=== PATIENT | female | born 1955 | race Caucasian/White ===

== ENCOUNTER 2017-07-08 19:49 | Inpatient (IN) | payer OTHER, MEDICAID ==
[~2017-07-08] VITALS: Ht 154.9 cm; Wt 57.2 kg
[~2017-07-08 19:49] MED LIST: ADVAIR 250-501 EACH INH; ADVAIR HFA 230M12 GM; ADVAIR HFA 230M12 GM INH; APAP500 PO; AZELASTINE137 MCG/0. NASAL; BENADRYL25 MG PO; CEFUROXIME250 MG PO; DIFLUCAN200 MG PO; DUONEB 2.5-0.5 M3 ML; FLONASE 0.05%50 MCG NASAL; HYDROCODONE-AP1 EAC6 PO; HYDROCODONE-APA1 TA1 PO; IBUPROFEN 200200 M1 PO; KEFLEX500 M1 PO; KLOR-CON 1010 MEQ PO; LASIX 40 MG TAB40 M2 PO; LEVALBUTER1.25 MG/0. INH; LEVAQUIN 250 M250 MG PO; LEVAQUIN 500 M500 M2 PO; LEVAQUIN 500 M500 MG PO; LORTAB 10-3251 EACH PO; MUCINEX TA600 MG/TA2 PO; NEXIUM40 MG PO; NORCO 5-325 TA1 EACH PO; NYSTATIN 1100000 U/M PO; ONDANSETRON HCL4 M2 PO; OXYGEN; PEPCID20 MG PO; PERCOCET 5-3251 EACH PO; PERCOCET PO; PREDNISONE 10 M10 MG PO; PREDNISONE10 MG PO; SINGULAIR 10 MG10 M1 PO; SPIRIVA INH; VENTOLIN HFA 1818 GM INH; VITAMIN D2000 UNIT PO; XANAX 0.5 MG0.5 MG PO
[2017-07-08 19:54] VITALS: BP 148/83
[2017-07-08] MEDS ORDERED: PREDNISONE 10 M10 MG (20:03)
[2017-07-08 20:33] LABS: ABSOLUTE LYMPHOCYTES 1.5 thou/uL (0.8-5.3); ABSOLUTE MONOCYTES 0.2 thou/uL (0.0-1.2); ABSOLUTE NEUTROPHILS 6.1 thou/uL (1.6-8.1); BASOPHILS 0.4 %; EOSINOPHILS 0.1 %; HEMATOCRIT 39.4 % (37.0-47.0); HEMOGLOBIN 12.8 gm/dL (12.0-15.0); MCH 30.9 pg (26.0-34.0); MCHC 32.6 g/dL (28.0-37.0); MCV 94.8 fL (80.0-100.0); MONOCYTES 2.9 %; MPV 7.9 fl. (7.2-11.1); NUCLEATED RBCS 0 /100WBC; PLATELET COUNT* 306 thou/uL (150-400); POLYS 77.6 %; RBC 4.15 mil/uL (4.20-5.00); RDW-CV 13.2 % (10.5-14.5); WBC 7.9 thou/uL (4.0-11.0)
[2017-07-08 20:41] LABS: ANION GAP 6 mmol/L (7-16); BUN 13 mg/dL (7-18); CALCIUM 8.4 mg/dL (8.5-10.1); CHLORIDE 102 mmol/L (98-107); CO2 31 mmol/L (21-32); CREATININE 0.6 mg/dL (0.6-1.3); GLUCOSE 134 mg/dL (70-99); POTASSIUM 3.6 mmol/L (3.5-5.1); SODIUM 139 mmol/L (136-145)
[2017-07-08 20:52] LABS: ALBUMIN 3.3 g/dL (3.4-5.0); ALKALINE PHOSPHATASE 77 U/L (46-116); LIPASE 186 U/L (73-393); NT-PRO BRAIN NAT PEPTIDE 84 pg/mL (<300); SGOT 22 U/L (15-37); SGPT 26 U/L (30-65); TOTAL BILIRUBIN 0.1 mg/dL (<0.1-1.0); TOTAL PROTEIN 7.2 g/dL (6.4-8.2); TROPONIN-I LEVEL <0.06 ng/mL (<0.06)
[2017-07-08 22:56] LABS: INFLUENZA A ANTIGEN None Detected (None Detect); INFLUENZA B ANTIGEN None Detected (None Detect)
[2017-07-08 23:05] VITALS: BP 124/75
[2017-07-09] MEDS ORDERED: MUCINEX1200 MG PO (00:25)
[2017-07-09 00:51] VITALS: BP 119/70
[2017-07-09 02:22] LABS: URINE BILIRUBIN NEGATIVE (Negative); URINE BLOOD NEGATIVE (Negative); URINE CLARITY CLEAR; URINE COLOR YELLOW; URINE GLUCOSE-RANDOM NEGATIVE (Negative); URINE KETONES NEGATIVE (Negative); URINE LEUKOCYTES NEGATIVE (Negative); URINE NITRITE NEGATIVE (Negative); URINE PROTEIN NEGATIVE (Negative); URINE UROBILINOGEN 0.2 E.U./dl (0.2-1.0)
[2017-07-09 04:22] VITALS: BP 119/70
--- NOTE | 2017-07-09 06:15 | NUR ---
PT ARRIVED ON UNIT AT 2314. PT ORIENTED TO ROOM, SHOWN CALL LIGHT. WENT OVER FALL AGREEMENT, PT STATED UNDERSTANDING. ASSESSMENT DOCUMENTED. MEDS GIVEN PER E-MAR. PT REQUESTED TO NOT HAVE FLUIDS RUNNING SHE SWELLS EASY, PT ALSO REQUESTED CHANGE IN BREATING TREATMENT, ANXIETY MEDICATIONS AND SOMETHING FOR PAIN IN HER RIBS/BACK. NOTIFIED, ORDERS RECIEVED. PT AWAKE MOST OF SHIFT. WILL CONTINUE TO MONITOR.
[2017-07-09 08:15] VITALS: BP 128/76
--- NOTE | 2017-07-09 15:35 | EKG ---
[place] [address] ELECTROCARDIOGRAM REPORT Name: JANETH KIRBY I Room: [address] ADM IN M.R.#: [id number] Admission: 07/08/17 Attend Phys: Gayle Romo MD Discharge: Date of : 57 Report #: [id number] THIS REPORT FOR: //name// [facility] ED Test Date: 2017-07-08 Test Time: 20:47:22 Pat Name: JANETH KIRBY Department: Room: [facility] Gender: F Business Office Assistant: BRIANNA : 1955 Requested By: Janet Pablo Order Number: [id number] MD: Adrien Man Measurements Intervals Allen Rate: 100 P: 69 FL: 134 QRS: -12 QRSD: 101 T: 33 QT: 346 QTc: 447 Interpretive Statements Sinus tachycardia Atrial premature complexes Compared to ECG 05/14/2017 20:57:48 Inferior Q waves no longer present Electronically Signed On 07-09-2017 15:34:52 TRIM OPERATOR by Adrien Man [email or web address] <ELECTRONICALLY SIGNED> By: Adrien Man MD, [facility] 07/09/17 1534 46 Adrien Man MD, [facility] /EPI
[2017-07-09 15:45] VITALS: BP 122/79
--- NOTE | 2017-07-09 16:02 | 2DMMODE ---
[place] [address] 2 D/M-MODE ECHOCARDIOGRAM Name: MIRTAJANETH I Room: [address] IN [facility]#: [id number] Admission: 07/08/17 Attend Phys: Gayle Romo, Discharge: Date of : 57 Date of Service: 07/09/17 1602 Report #: [id number] THIS REPORT FOR: //name// APPROVED REPORT Study performed: 07/09/2017 14:42:47 EXAM: Comprehensive 2D, Doppler, and color-flow Echocardiogram Patient Location: In-Patient Room #: [facility] Status: routine BSA: 1.55 HR: 91 bpm BP: 128/76 mmHg Rhythm: NSR Other Information Study Quality: Good Indications COPD Dyspnea 2D Dimensions LVEF(%): 59.03 (>50%) IVSd: 9.06 (7-11mm) LVOT Diam: 19.19 (18-24mm) LVDd: 33.71 mm PWd: 9.09 (7-11mm) Ascending Ao: 28.10 (22-36mm) LVDs: 23.45 (25-40mm) Aortic Root: 31.62 mm Vega's LVEF: 59.03 % Volumes Left Atrial Volume (Systole) LA ESV Index: 20.60 mL/m2 Aortic Valve AoV Peak Wai.: 1.33 m/s AO Peak Gr.: 7.03 mmHg LVOT Max P.50 mmHg AO Mean Gr.: 4.35 mmHg LVOT Mean P.06 mmHg LVOT Max V: 1.37 m/s AO V2 VTI: 27.74 cm LVOT Mean V: 0.78 m/s NYASIA (VTI): 2.70 cm2 LVOT V1 VTI: 25.87 [place] [address] 2 D/M-MODE ECHOCARDIOGRAM Name: JANETH KIRBY I Room: [address] IN .R.#: [id number] Admission: 07/08/17 Attend Phys: Gayle Romo, Discharge: Date of : 57 Date of Service: 07/09/17 1602 Report #: [id number] E/A Ratio: 0.85 MV Decel. Time: 244.49 ms MV E Max Wai.: 0.66 m/s MV PHT: 70.90 ms MVA (PHT): 3.10 cm2 TDI E/Lateral E': 5.08 E/Medial E': 6.00 Medial E' Wai.: 0.11 m/s Lateral E' Wai.: 0.13 m/s Pulmonary Valve PV Peak Wai.: 1.05 m/s PV Peak Gr.: 4.42 mmHg Tricuspid Valve TR Peak Gr.: 21.12 mmHg RVSP: 26.00 mmHg Left Ventricle The left ventricle is normal size. There is normal LV segmental wall motion. There is normal left ventricular wall thickness. Left ventricular systolic function is normal. The left ventricular ejection fraction is within the normal range. LVEF is 60%. Grade I - abnormal relaxation pattern. Right Ventricle The right ventricle is normal size. The right ventricular systolic function is normal. Atria The left atrium size is normal. The right atrium size is normal. Aortic Valve Mild aortic valve sclerosis. No aortic regurgitation is present. There is no aortic valvular stenosis. Mitral Valve The mitral valve is normal in structure. Trace mitral regurgitation. No evidence of mitral valve stenosis. Tricuspid Valve The tricuspid valve is normal in structure. Trace tricuspid regurgitation. The RVSP is ____26___ mmHg. Pulmonic Valve The pulmonary valve is normal in structure[place] [address] 2 D/M-MODE ECHOCARDIOGRAM Name: JANETH KIRBY I Room: [address] IN [facility]#: [id number] Admission: 07/08/17 Attend Phys: Gayle Romo, Discharge: Date of : 57 Date of Service: 07/09/17 1602 Report #: [id number] regurgitation. Great Vessels The aortic root is normal in size. IVC is normal in size and collapses with >50% inspiration Pericardium There is no pericardial effusion. <Conclusion> The left ventricle is normal size. There is normal left ventricular wall thickness. Left ventricular systolic function is normal. The left ventricular ejection fraction is within the normal range. LVEF is 60%. Grade I - abnormal relaxation pattern. The right ventricle is normal size. The left atrium size is normal. Mild aortic valve sclerosis. No aortic regurgitation is present. There is no aortic valvular stenosis. The mitral valve is normal in structure. Trace mitral regurgitation. The tricuspid valve is normal in structure. Trace tricuspid regurgitation. The RVSP is ____26___ mmHg. IVC is normal in size and collapses with >50% inspiration There is no pericardial effusion. There is normal LV segmental wall motion. <ELECTRONICALLY SIGNED> By: Adrien Man MD, FACC 07/09/17 1602 1602 160 Adrien Man MD, FACC /INF
--- NOTE | 2017-07-09 16:08 | NUR ---
PT.IN BED WITH O2 ON. WAS A BIT SOA WITH SPEAKING. SHE SAID SHE LIVES WITH HER DAUGHTER,ELANA, AND 2 SCHOOL AGE GRANDCHILDREN. SHE LIVES DOWNSTAIRS THAT HAS A BEDROOM,LIVING ROOM,AND BATHROOM. SHE HAS ACCESS TO A REFRIDGERATOR AND MICROWAVE IF SHE DOESN'T WANT TO GO UPSTAIRS TO THE KITCHEN FOR MEALS. SHE SAID SOMEDAYS THE STAIRS ARE JUST TOO MUCH FOR HER. SHE HAS O2 THROUGH [facility]. SHE SAID I HAVE EVERYTHING I NEED. SHE IS INDEPENDENT. DRIVES,SPOT CLEANS,DOES LAUNDRY,DRIVES. SEH SAID IM NOT INDEPENDENT I USED TO BE. SHE WANTS TO MAKE OUT A NEW ADVANCE DIRECTIVE. SHE WOULD LIKE SOMEONE TO SIT DOWN AND GO OVER IT WITH HER. NONE ON 3W. CM TOLD HER I WOULD BRING HER ONE TOMORROW.
--- NOTE | 2017-07-09 16:44 | NUR ---
PATIENT UP TO BATHROOM AD MAHIN, STRADY GAIT NOTED. URINE SENT ORDERED FOR SAMPLE AND PENDING, SPUTUM CUP GIVEN AND AWAITING SAMPLE. HOME MEDS REORDERED AND GIVEN. PATIENTS DAUGHTER BROUGHT IN HOME SPIRIVA, ADVAIR, AND NASAL SPRAY; ALL SENT TO PHARMACY FOR CHECKING. IV REMAINS SL, SCHED STEROIDS AND ABX REMAIN. TOLERATING REG DIET. PULMONARY HERE THIS MORNING TO SEE PATIENT.
[2017-07-10] VITALS: BP 116/64
[2017-07-10 04:33] LABS: HEMATOCRIT 36.9 % (37.0-47.0); HEMOGLOBIN 12.4 gm/dL (12.0-15.0); MCH 31.2 pg (26.0-34.0); MCHC 33.5 g/dL (28.0-37.0); MCV 93.3 fL (80.0-100.0); MPV 8.3 fl. (7.2-11.1); RBC 3.95 mil/uL (4.20-5.00); WBC 3.9 thou/uL (4.0-11.0)
[2017-07-10 04:41] LABS: CALCIUM 8.8 mg/dL (8.5-10.1); CREATININE 0.7 mg/dL (0.6-1.3); POTASSIUM 4.5 mmol/L (3.5-5.1)
--- NOTE | 2017-07-10 06:47 | NUR ---
PATIENT SLEPT PART OF THE NIGHT. IV REMAINS SALINE LOCKED. PATIENT REMAINS ON OXYGEN AT 2 LITERS PER NASAL CANNULA. PATIENT STATES SHE IS FEELING A LITTLE BETTER. WILL CONTINUE TO MONITOR.
[2017-07-10 08:35] VITALS: BP 144/89
--- NOTE | 2017-07-10 13:20 | CON ---
[facility] [address] [place] [address] CONSULTATION Name: MIRTAJANETH Deion Room: [address] IN M.R.#: [id number] Admission: 07/08/17 Attend Phys: Gayle Romo MD Discharge: Date of : 57 Report #: [id number] THIS REPORT FOR: //name// CC: Car Romo REQUESTING PHYSICIAN: Marquis Correa M.D. REASON FOR CONSULTATION: Chronic cough. DISCUSSION: The patient is a 61-year-old woman with a history of severe COPD. She is O2, though has not been steroid dependent. Our group has seen her previously when she has been hospitalized here at [place]. She normally gets her pulmonary care through Dr. Meade in [facility]. She is a former smoker. Baseline, she does have severe disease. She has been O2, though not steroid dependent. Quit smoking approximately 2008. She located to this area several years ago from [place]. She was treated for Aspergillus infection approximately 2009 based on results from a bronchoscopy at that time. She was hospitalized here 2 years ago. At that time, was found to have suspicious masses in addition to changes of old granulomatous disease. She underwent bronchoscopy. At that time, no additional fungi or AFBs were identified. A followup CAT scanning did show the larger nodules had essentially resolved or shrunk inside. She has continued with evidence of old granulomatous disease with no worrisome masses on scans done back in May. She was hospitalized here in the spring of this year. She was treated for bronchitis and COPD exacerbation. Scans done at that time and cultures were all negative. She does not believe she required any antibiotics for her lungs up until the last couple of months. She has had her flu shot and is up-to-date with her pneumonia vaccines. She has had a lot of cough. At times, it varies. Intermittently is having pain. She describes it as a stabbing pain. Some of it is at the lower part of her right anterior rib cage. Other times, it is in the back. She may be coughing hard. At times, she may feel as if it is from upper airway congestion and postnasal drip. At times, just feels like she cannot get the secretions out. Intermittently, has heard some rattles in her chest when she first lies down. She does do Mucinex at home as well. At home besides her O2, she does have the nebulizer. She does albuterol with that, Spiriva daily and Advair twice a day. Also, fluticasone nasal spray, Zyrtec and Astelin. She does believe she has enough humidity. She has been coughing so hard and at times feeling weaker, subsequently did come to the ED. She notes the last couple of days, her O2 saturations were falling into the 80s. Heart rate at times were somewhat erratic as well. She does have a pulse oximeter at home. She describes having heart rates down in the 40s and then tachycardic (question if it was picking up a good signal or not). She has not had any hemoptysis. Secretions have been thick. Generally, is not able to get up much. She does [address] [address] CONSULTATION Name: JANETH KIRBY I Room: [address] IN M.R.#: [id number] Admission: 07/08/17 Attend Phys: Gayle Romo MD Discharge: Date of : 57 Report #: [id number] have an Acapella at home, which she will use. She has ongoing issues with indigestion and heartburn. She does use Nexium daily and at times will use some p.r.n. Pepcid as well. On reviewing some of her old consults, she had PFTs done several years ago. At that time, her FEV1 was only 0.62 or 27% of predicted. Her FEV1/FVC ratio was 37%. She did have a bronchoscopy done by Dr. Macias 2 years ago. At that time, I was concerned that she had some masses. 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 She had no endobronchial lesions seen. She has no prior history of thromboembolic disease. PAST MEDICAL HISTORY: Besides her pulmonary disease is remarkable for having prior episodes of pneumonia and she did have a Pseudomonas pneumonia over a year ago, the followup cultures were all negative, hernia repair, hysterectomy with oophorectomy, diverticular disease. ALLERGIES: SHE DOES HAVE MULTIPLE ALLERGIES, NOT ONLY MEDICATIONS BUT FOODS WELL. SOCIAL HISTORY: Quit smoking back in 2008. FAMILY HISTORY: Positive for heart disease, breast cancer, strokes, thromboembolic disease and COPD. REVIEW OF SYSTEMS: No positives above. Does have ongoing reflux symptoms. She does note when she has a flare up or an exacerbation, she does get chest pain in the same locations. Intermittent upper airway congestion. Not had any vomiting. No hemoptysis. Secretions have been thick, but more recently has had trouble mobilizing them. White to pale yellow. No diarrhea. She does tend to retain fluid in her lower extremities. It is worse when she takes steroids. No syncopal episodes. However, she did have palpitations, felt extremely lightheaded over the last couple of days when she was exerting herself. PHYSICAL EXAMINATION: GENERAL APPEARANCE: A woman who looks stated age. Alert, cooperative, fairly comfortable. She is having a very harsh cough. Did not expectorate any sputum at the time of my visit. HEENT: Head is normocephalic. Sclerae are nonicteric. Mucous membranes are moist. NECK: Negative for adenopathy. No JVD is noted. No supraclavicular adenopathy. HEART: Regular rate. Just mildly tachycardic. No S3 is heard. LUNGS: Show breath sounds to be markedly diminished. She has a prolonged expiratory phase. Excursion is equal. A few faint late expiratory wheezes are heard. No chest wall abnormalities are appreciated. She does have some tenderness when palpating along the lower [place] [id number] CONSULTATION Name: JANETH KIRBY I Room: [address] IN [facility].#: [id number] Admission: 07/08/17 Attend Phys: Gayle Romo MD Discharge: Date of : 57 Report #: [id number] ABDOMEN: Soft, without appreciable hepatosplenomegaly. There is no guarding or rebound tenderness noted. EXTREMITIES: She has no clubbing. Lower extremities are negative for significant edema, at most may have just some very trace pretibial edema. No obvious cords. No calf tenderness. SKIN: Warm and dry. NEUROLOGIC: She is alert and oriented x 3. LABORATORY AND X-RAY FINDINGS: Chest x-ray was reviewed. It is unchanged compared to prior studies. It has changes of almost miliary pattern of old granulomatous disease. She did have a CT scan done of her chest for followup on 05/19/2017. Continued to show extensive small calcified granulomas. She does have a left diaphragmatic hernia noted as well. There were no worrisome masses noted. No worrisome adenopathy. On her chemistry, BUN is 13, creatinine 0.6, potassium 3.6 with a bicarbonate of 31. Calcium is 8.4. LFTs unremarkable. Albumin 3.3. ProBNP was 84. Coag studies unremarkable. D-dimer was only 0.30. White blood cell count 7900, hemoglobin 12.8, hematocrit 39.4, platelets 306,000. Influenza screen was negative. IgE done in the past was negative. Blood cultures have been sent. Sputum culture has been requested. She did have noted bronchoscopy done in 2015. At that time, AFB, fungal cultures were all negative. Bacterial cultures were also negative. A year ago, she did have rare Pseudomonas isolated. However, followup sputum cultures were all negative. She has had additional AFB cultures done in the interim, again all negative. IMPRESSION: 1. Chronic obstructive pulmonary disease exacerbation. Continues with considerable amount of cough. It is related to her severe chronic obstructive pulmonary disease as I note her FEV1 2 years ago was only 0.062 or 27% of predicted. Her cough may also be exacerbated by ongoing issues with reflux. I note at that time, she underwent bronchoscopy several years ago. She did have changes of tracheomalacia. This will also make it more difficult to try and clear secretions. At this point, I do not think she has significant lower respiratory tract infections. Follow up testing done on several occasions over the last several years have not identified AFB or an ongoing fungal infection. 2. History of gastroesophageal reflux disease. 3. Mild lower extremity edema. Some of this could be related to steroids. She was taking some steroids at home over the last 4-8 weeks in attempts to trying to help her cough. I think thromboembolic disease is less likely. She had an unremarkable D-dimer done in the ED. RECOMMENDATIONS: 1. She has a lot of medication intolerances. Since she does tolerate Spiriva and Advair at home, her family will bring in those 4 and she can use those here. She does believe she has issues related to inhaled ipratropium. [address] [address] CONSULTATION Name: JANETH KIRBY I Room: [address] IN .R.#: [id number] Admission: 07/08/17 Attend Phys: Gayle Romo MD Discharge: Date of : 57 Report #: [id number] 2. Agree with IV steroids. 3. We will also provide Aerobika to try and help mobilize secretions. 4. Continue with a GERD regimen as well. 5. At this point, I think treatment with Levaquin is probably sufficient. With a normal white count, no changes on her x-ray compared to prior studies, I doubt she has a significant lower respiratory tract infection. Follow up cultures done since she had Pseudomonas have not shown any evidence of recurrence. <ELECTRONICALLY SIGNED> By: Rakel Roe MD 07/10/17 1320 1253 [id number] Mendez MD /nt
[2017-07-10 15:55] VITALS: BP 118/89
--- NOTE | 2017-07-10 16:42 | NUR ---
LONG DISCUSSION ABOUT DPOA AND ADVANCE DIRECTIVE WITH PT. SHE HAS TALKED ALOT TO HER DAUGHTER ABOUT HER WISHES. SHE FILLED OUT AD AND DPOA. NOTARIZED AND A COPY PLACED ON CHART. GAVE HER ORIGINAL AND 5 COPIES. SHE SEEMED TO HAVE ALOT OF ANXIETY WHILE DISCUSSING ADVANCE DIRECTIVE.
--- NOTE | 2017-07-10 18:43 | NUR ---
PATIENT HAS BEEN A/OX 4 THIS SHIFT. CONTINUES ON O2 AT 2L/NC, HAS NON-PRODUCTIVE TO CONGESTED COUGH AT TIMES. PATIENT UP INDEPENDENTLY WITH O2 IN ROOM. AMBULATED TO SHOWER ROOM TODAY. CONTINUES ON IV STEROIDS. SEEN BY PULM. PATIENT INCREASING ACTIVITY THIS SHIFT. HOURLY ROUNDING COMPLETED. CALL LIGHT WITHIN REACH. WILL CONTINUE WITH PLAN OF CARE.
[2017-07-10 20:00] VITALS: BP 124/76
[2017-07-10 22:17] LABS: HEMOGLOBIN 12.5 gm/dL (12.0-15.0); NUCLEATED RBCS 0 /100WBC
[2017-07-10 22:19] LABS: ABSOLUTE LYMPHOCYTES 0.9 thou/uL (0.8-5.3); ABSOLUTE MONOCYTES 0.2 thou/uL (0.0-1.2); ABSOLUTE NEUTROPHILS 5.7 thou/uL (1.6-8.1); BASOPHILS 0.6 %; HEMATOCRIT 37.3 % (37.0-47.0); LYMPHOCYTES 12.8 %; MCH 31.4 pg (26.0-34.0); MCHC 33.6 g/dL (28.0-37.0); MCV 93.4 fL (80.0-100.0); MONOCYTES 3.6 %; MPV 8.2 fl. (7.2-11.1); PLATELET COUNT* 316 thou/uL (150-400); RBC 3.99 mil/uL (4.20-5.00); WBC 6.9 thou/uL (4.0-11.0)
--- NOTE | 2017-07-11 04:44 | NUR ---
PT SLEPT MOST OF SHIFT. ASSESSMENT DOCUMENTED. MEDS GIVEN PER E-SEP. PT REPORTED PAIN IN HER RIGHT SIDE, RIBS AND BACK AREA AND REQUESTED BENGAY AND IBPROFEN. DR NOTIFED, ORDERS RECIEVED AND GIVEN PER E-SEP. IV PATENT. PT AMBULATING IN ROOM. NO CONCERNS AT THIS TIME, WILL CONTINUE TO MONITOR.
[2017-07-11 08:15] VITALS: BP 127/87
[2017-07-11 17:47] VITALS: BP 127/89
--- NOTE | 2017-07-11 18:47 | NUR ---
PATIENT UP IN CHAIR. PATIENT IS UP AD MAHIN. PATIENT IS ON 2L/NC. PATIENT HAS COMPLAINTS OF SHORTNESS OF BREATH WITH EXERTION. PATIENTHAVING COMPLAINTS OF BACK PAIN THIS EVENING, DR GARCIA NOTIFIED AND ORDERS RECEIVED. PATIENT DENIES ANY NEEDS AT THIS TIME. CALL LIGHT WITHIN REACH. WILL CONTINUE TO MONITOR.
[2017-07-12 00:27] VITALS: BP 122/68
[2017-07-12 04:17] LABS: HEMATOCRIT 40.5 % (37.0-47.0); HEMOGLOBIN 13.2 gm/dL (12.0-15.0); MCH 30.8 pg (26.0-34.0); MCHC 32.5 g/dL (28.0-37.0); MCV 94.6 fL (80.0-100.0); MPV 8.2 fl. (7.2-11.1); RBC 4.28 mil/uL (4.20-5.00); RDW-CV 13.2 % (10.5-14.5); WBC 9.5 thou/uL (4.0-11.0)
[2017-07-12 04:32] LABS: CALCIUM 9.7 mg/dL (8.5-10.1); CREATININE 0.7 mg/dL (0.6-1.3); MAGNESIUM 2.2 mg/dL (1.8-2.4); POTASSIUM 4.7 mmol/L (3.5-5.1)
--- NOTE | 2017-07-12 04:32 | NUR ---
PATIENT SLEPT PART OF THE NIGHT. IV REMAINS SALINE LOCKED. PATIENT DENIED THE NEED FOR ANY PAIN MEDICINE. PATIENT REMAINS ON OXYGEN AT 2 LITERS PER NASAL CANNULA. PATIENT IS POSSIBLY GOING HOME TODAY OR TOMORROW. WILL CONTINUE TO MONITOR.
[2017-07-12 07:45] VITALS: BP 131/102
--- NOTE | 2017-07-12 17:06 | NUR ---
PATIENT UP IN CHAIR. PATIENT ON O2 AT 2L/NC. PATIENT DENIES ANY TROUBLE BREATHING. PATIENT HAS HAD COMPLAINTS OF BACK PAIN, TREATED ADEQUATELY WITH MEDICATION. PATIENT STARTED ON TELEMETRY. PATIENT HAS GOOD APPETITE. PATIENT DENIES ANY NEEDS AT THIS TIME. CALL LIGHT WITHIN REACH. WILL CONTINUE TO MONITOR.
[2017-07-12 19:58] VITALS: BP 113/94
[2017-07-13] VITALS: BP 122/71
[2017-07-13 04:00] VITALS: BP 134/74
[2017-07-13 04:46] LABS: CREATININE 0.4 mg/dL (0.6-1.3); MAGNESIUM 2.3 mg/dL (1.8-2.4); POTASSIUM 4.9 mmol/L (3.5-5.1)
--- NOTE | 2017-07-13 05:12 | NUR ---
PT UP MOST OF THE NIGHT, PLEASANT, IV SALINE LOCKED, PRN PAIN MED LAST NIGHT, BREATHING TREATMENTS BY RT, CALL LIGHT IN REACH, WILL CONTINUE TO MONITOR
[2017-07-13 08:00] VITALS: BP 136/79
[2017-07-13 17:47] VITALS: BP 125/71
--- NOTE | 2017-07-13 19:57 | NUR ---
DAY 6 OF STAY, ASSUMED CARE THIS AM. ORIENTED, EXTREMELY ANXIOUS ABOUT PROGNOSIS, CARE PLAN, DIAGNOSTICS, RESULTS, DISEASE PROCESS, ETC. ELEVATED BP AND HR ALLEVIATED WITH BENZO AND MOTRIN. UP AD MAHIN, CONT ON 2L02NC. DAUGHTER AT BEDSIDE MOST OF THIS AFTERNOON, DAUGHTER DID STATE TO PATIENT, "YOU ARE THIS WORKED UP BECAUSE OF THE STEROIDS". DR. SOTOMAYOR AT BEDSIDE. CONT POC.
[2017-07-14 00:18] VITALS: BP 189/113
[2017-07-14 00:43] LABS: BE 5.4 mmol/L (-2 to +3); HCO3 29.2 mmol/L (22.0-26.0); PCO2 39.9 mmHg (35.0-45.0); PO2 73.4 mmHg (75.0-100.0); pH 7.482 (7.340-7.450)
--- NOTE | 2017-07-14 01:01 | NUR ---
PATIENT CONCERNED ABOUT NEW ANTIBIOTIC ORDERED SAYING THAT DR DID NOT WARN HER ABOUT IT. EXPLAINED TO PT ORDER WAS JUST PUT IN AND ANTIBX WAS NOT ON FLOOR YET THAT LEVEQUIN IV WOULD RUN FIRST AND INFORMATION SUCH SIDE EFFECTS AND ALLERGIC REACTIONS WOULD BE RESEARCHED AND INFORMATION GIVEN TO PATIENT. PT WRITING DOWN ALL MEDICATIONS, DOSES AND TIMES GIVEN. PT COMPLAINED HER IV WAS LEAKING. IV WAS SALINE LOCKED AT THE TIME. GOOD BLOOD RETURNED NOTED PRIOR TO HANGING LEVEQUIN AND WAS SET TO INFUSE. BAKER TEST FLUSHED PATIENT WHEN IV COMPLETED AND PT COMPLAINED IT WAS LEAKING. BAKER TEST REASSURED PATIENT THAT IV WAS WORKING FINE AND REPORTED THIS INFORMATION TO ME. NEW ANTIBIOTIC HUNG, PT STATED SHE DID NOT NEED INFORMATION ON THIS MEDICATION SHE HAD ALREADY RESEARCHED IT AND DECIDED IT WAS OK TO TAKE. PT AGAIN COMPLAINED HER IV WAS LEAKING. NO DAMPNESS WAS NOTED AND IV WAS STARTED AND WATCHED FOR LEAKING; NONE NOTED AND REASSURANCE GIVEN. PT THEN CALLED AND SAID IT WAS LEAKING. ANOTHER RN WENT TO ROOM AND ASSURED PT IT WAS NOT LEAKING. RN TURNED AND PT HAD RIPPED IV OUT OF ARM. IV HAD BEEN TAPED SECURELY BY MYSELF AT BEGINNING OF SHIFT. LAB THEN CALLED THE NURSES STATION AND SAID PT HAD CALLED THEIR DEPARTMENT INSISTING RESULTS OF HER SPUTUM THAT WAS SENT A FEW DAYS AGO. PT WAS TOLD BY LAB THEY WERE UNABLE TO GIVE RESULTS OF TESTS THAT SHE WOULD NEED TO CHECK HER PORTAL OR CHECK WITH MEDICAL RECORDS. PT VERY ANXIOUS AND APPEARS SUSPICIOUS OF ALL STAFF AND DOCTORS. PT SAID THAT SHE FEELS DOCTORS ARE HIDING INFORMATION FROM HER. REASSURANCE GIVEN TO PATIENT THAT ALL PERTINENT INFORMATION HAS BEEN SHARED WITH HER. WILL CONTINUE TO MONITOR.
[2017-07-14] MEDS ORDERED: PREDNISONE 10 M10 MG PO (09:09)
[2017-07-14] MEDS ORDERED: FLUCONAZOLE 10100 MG PO (09:09)
[2017-07-14] MEDS ORDERED: LEVAQUIN 750 M750 MG PO (09:09)
[2017-07-14 11:28] VITALS: BP 189/113
--- NOTE | 2017-07-14 11:35 | NUR ---
RESUMED CARE THIS AM. CONT ON 2L02NC, MEDS GIVEN ORDERED, UP TO CHAIR FOR BREAKFAST, ORDERS FOR DISCHARGE RECEIVED, PENDING CASE MANAGEMENT TO INITIATE HOME HEALTH SERVICES. CONT POC.
[2017-07-14 12:00] VITALS: BP 135/91
[2017-07-14 13:19] VITALS: BP 189/113
--- NOTE | 2017-07-14 13:21 | NUR ---
Pt to dc home with HH services today. SW met with pt to discuss pt preferences and dc planning. Pt preference for [facility] and in network with insurance. SW called intake of [facility] and faxed referral and orders; [facility] checking on referral and will be able to accept. Pt and SW discussed possibility for transportation resources to doctor's appts, etc and talked about private duty care although pt expressed no finances available. Pt discussed pt dtr could take her to appts if needed and she has also heard of senior transportation like the [employer] bus. Pt has oxygen through [facility] at home already. No other needs expressed at this time.
[2017-07-16 12:11] LABS: ANTI-DNA SCREEN 1 IU/mL (0-9); ANTI-RNP 0.2 AI (0.0-0.9)
== END 2017-07-14 13:55 | disposition home health service (06) | DRG 193 ==
LOC: M.ERS 19:49 → M.3W 21:57 → M.TBA-ER 21:57 → M.3W 23:14
PROVIDERS: Family Medicine; Internal Medicine; Internal Medicine Critical Care Medicine; Personal Emergency Response Attendant; Physician Assistant; ADMIT Internal Medicine
PROC: B24BZZ4 Ultrasonography of Heart with Aorta, Transesophageal (ICD-10-PCS; principal; 2017-07-09)
DX: J13 Pneumonia due to Streptococcus pneumoniae (principal); J96.21 Acute and chronic respiratory failure with hypoxia; J44.0 Chronic obstructive pulmonary disease with (acute) lower respiratory infection; R65.10 Systemic inflammatory response syndrome (SIRS) of non-infectious origin without acute organ dysfunction; M48.54XA Collapsed vertebra, not elsewhere classified, thoracic region, initial encounter for fracture; J44.1 Chronic obstructive pulmonary disease with (acute) exacerbation; J39.8 Other specified diseases of upper respiratory tract; I10 Essential (primary) hypertension; K21.9 Gastro-esophageal reflux disease without esophagitis; F41.0 Panic disorder [episodic paroxysmal anxiety]; K57.90 Diverticulosis of intestine, part unspecified, without perforation or abscess without bleeding; J20.9 Acute bronchitis, unspecified; Z87.891 Personal history of nicotine dependence; Z99.81 Dependence on supplemental oxygen; Z90.710 Acquired absence of both cervix and uterus; Z90.722 Acquired absence of ovaries, bilateral; Z90.49 Acquired absence of other specified parts of digestive tract; Z79.51 Long term (current) use of inhaled steroids; Z79.899 Other long term (current) drug therapy; Z88.6 Allergy status to analgesic agent; Z88.1 Allergy status to other antibiotic agents; Z91.040 Latex allergy status; Z88.5 Allergy status to narcotic agent; Z88.0 Allergy status to penicillin; Z88.2 Allergy status to sulfonamides; Z88.8 Allergy status to other drugs, medicaments and biological substances; Z91.018 Allergy to other foods; Z82.49 Family history of ischemic heart disease and other diseases of the circulatory system; Z80.3 Family history of malignant neoplasm of breast; Z82.3 Family history of stroke; Z82.5 Family history of asthma and other chronic lower respiratory diseases

== ENCOUNTER → 2017-09-05 | Outpatient (CLI) | payer OTHER, MEDICAID ==
[~2017-09-05] MED LIST changes: +FLUCONAZOLE 10100 MG PO; +LEVAQUIN 750 M750 MG PO; +MUCINEX1200 MG PO; +PREDNISONE 10 M10 MG
[2017-09-05 13:22] LABS: CREATININE 0.6 mg/dL (0.6-1.3)
== END ==
LOC: M.MRI 08-29 13:11 → M.LAB 09-04 12:30 → M.MRI 09-04 13:30 → M.LAB 12:30 → M.MRI 13:30
PROVIDERS: Internal Medicine
DX: M48.54XA Collapsed vertebra, not elsewhere classified, thoracic region, initial encounter for fracture (principal); M43.8X4 Other specified deforming dorsopathies, thoracic region; M54.14 Radiculopathy, thoracic region; R60.0 Localized edema; M50.221 Other cervical disc displacement at C4-C5 level; M50.222 Other cervical disc displacement at C5-C6 level; M50.223 Other cervical disc displacement at C6-C7 level; M47.892 Other spondylosis, cervical region; J06.9 Acute upper respiratory infection, unspecified; B97.89 Other viral agents as the cause of diseases classified elsewhere; J02.9 Acute pharyngitis, unspecified

== ENCOUNTER → 2021-01-25 | Outpatient (CLI) | payer OTHER, MEDICAID | LOC: M.ULTRA 14:30 | PROVIDERS: ATTEND Internal Medicine | DX: M79.669 Pain in unspecified lower leg (principal); M79.89 Other specified soft tissue disorders ==

== ENCOUNTER → 2021-06-21 | Outpatient (CLI) | payer OTHER, MEDICAID | LOC: M.ULTRA 09:00 | PROVIDERS: ATTEND Internal Medicine | DX: M79.89 Other specified soft tissue disorders (principal); M79.662 Pain in left lower leg ==